=== PATIENT | female | born 1980 | race African-American/Black ===

== ENCOUNTER 2018-03-13 09:26 | Emergency (ER) | payer BC, SELFPAY ==
[2018-03-13] MEDS ORDERED: LIDOCAINE 1% 20 ML MDV ONE (09:49)
--- NOTE | 2018-03-13 10:10 | ER ---
Nurse's Notes [facility] Name: Isabel Cole Age: 38 yrs Sex: Female : 1980 Arrival Date: 03/13/2018 Time: 09:32 Bed 14 Private MD: Diagnosis: Cutaneous abscess of left upper limb Presentation: 03/13 09:42 Presenting complaint: Patient states: pain and swelling to L forearm x 2 days. Patient ss states, "my friend popped it, and after she popped it, it got more swollen.". Transition of care: patient was not received from another setting of care. Onset of symptoms was March 10, 2018. Initial Sepsis Screen: Does the patient meet any 2 criteria? No. Patient's initial sepsis screen is negative. Does the patient have a suspected source of infection? No. Patient's initial sepsis screen is negative. Care prior to arrival: None. 09:42 Method Of Arrival: Ambulatory ss 09:42 Acuity: ESTELA 4 ss Triage Assessment: 10:06 Bite description: bite sustained to palmar aspect of left forearm by an unknown animal, la1 animal information: vaccination(s) is unknown. General: Appears in no apparent distress. Behavior is calm, cooperative. Historical: - Allergies: 09:49 No Known Allergies; ss - Home Meds: 09:49 None [Active]; ss - PMHx: 09:49 None; ss - PSHx: 09:49 facial reconstruction; ss - Immunization history:: Adult Immunizations up to date. - Social history:: Smoking status: Patient/guardian denies using tobacco. - Family history:: not pertinent. - Hospitalizations: : No recent hospitalization is reported. Screenin:53 Abuse screen: Denies threats or abuse. Nutritional screening:. Tuberculosis screening: la1 No symptoms or risk factors identified. Fall Risk None identified. Assessment: 09:52 General: Appears in no apparent distress. Behavior is calm, cooperative. Pain: la1 Complains of pain in palmar aspect of left forearm. Neuro: Level of Consciousness is awake, alert, obeys commands, Oriented to person, place, time, situation. Cardiovascular: Capillary refill < 3 seconds Patient's skin is warm and dry. Derm: Skin is intact, is healthy with good turgor, Skin is pink, warm \\T\\ dry. Abscess located on palmar aspect of left forearm. Vital Signs: 09:49 BP 108 / 64; Pulse 87; Resp 16; Temp 98.5(O); Pulse Ox 98% on R/A; Weight 84.82 kg; ss Height 5 ft. 4 in. (162.56 cm); Pain 10/10; 09:49 Body Mass Index 32.10 (84.82 kg, 162.56 cm) ED Course: 09:32 Patient arrived in ED. sb2 09:35 Chaitanya Lim MD is Attending Physician. rn 09:42 Sheryl Abraham, SALVADOR is Primary Nurse. ph 09:46 Triage completed. ss 09:49 Arm band placed on right wrist. ss 09:53 Call light in reach. Side rails up X 1. la1 09:53 Assist provider with I \\T\\ D: of an abscess on left left arm Performed by Chaitanya Lim MD. la1 10:10 Priyank Rai MD is Referral Physician. rn 10:36 Patient did not have IV access during this emergency room visit. la1 Administered Medications: 09:52 Drug: Lidocaine (1 %) 1 vials Volume: 20 ml; Route: Infiltration; la1 Outcome: 10:10 Discharge ordered by . rn 10:36 Discharged to home ambulatory. la1 10:36 Condition: stable 10:36 Discharge instructions given to patient, Instructed on discharge instructions, follow up and referral plans. Demonstrated understanding of instructions, follow-up care, medications, Prescriptions given X 1. 10:36 Patient left the ED. la1 Addendum: 03/16/2018 15:23 Addendum: Culture Results: Positive wound culture. Bacteria is resistant to, has a a5 intermediate sensitivity, or is not tested against prescribed antibiotics. 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 Prescription called-in to pharmacy of choice. to [facility] pharmacy in [place], [place]. Signatures: Chaitanya Lim MD MD rn Calderon, Audri, RN RN aa5 Lay Tran RN RN Aaron Wang RN RN la1 Sheryl Abraham RN RN Cara Vargas sb2
--- NOTE | 2018-03-13 10:11 | EDPHYS ---
Physician Documentation [facility] Name: Isabel Cole Age: 38 yrs Sex: Female : 1980 Arrival Date: 03/13/2018 Time: 09:32 Bed 14 Private MD: ED Physician Chaitanya Lim HPI: 03/13 09:49 This 38 yrs old Black Female presents to ER via Ambulatory with complaints of Insect rn Bite. 09:49 the patient presents with a swollen area of the left arm. Onset: The symptoms/episode rn began/occurred 2 day(s) ago. Modifying factors: the symptoms are alleviated by nothing, the symptoms are aggravated by touching. Severity of symptoms: At their worst the symptoms were moderate, in the emergency department the symptoms have resolved. The patient has not experienced similar symptoms in the past. Historical: - Allergies: :49 No Known Allergies; ss - Home Meds: :49 None [Active]; ss - PMHx: :49 None; ss - PSHx: 09:49 facial reconstruction; ss - Immunization history:: Adult Immunizations up to date. - Social history:: Smoking status: Patient/guardian denies using tobacco. - Family history:: not pertinent. - Hospitalizations: : No recent hospitalization is reported. ROS: 09:49 Constitutional: Negative for fever, chills, and weight loss, MS/Extremity: Negative for rn injury and deformity, Skin: + swelling/abscess left forearm Exam: 09:49 Constitutional: This is a well developed, well nourished patient who is awake, alert, rn and in no acute distress. MS/ Extremity: Pulses equal, no cyanosis. + 3cm area of left mid forearm with mild warmth and fluctuance, central head to it, no streaking. Vital Signs: 09:49 BP 108 / 64; Pulse 87; Resp 16; Temp 98.5(O); Pulse Ox 98% on R/A; Weight 84.82 kg; ss Height 5 ft. 4 in. (162.56 cm); Pain 1010; 09:49 Body Mass Index 32.10 (84.82 kg, 162.56 cm) Procedures: 10:09 I \T\ D: Incision and drainage was performed for an abscess of the left left arm Prepped rn with Betadine, Anesthetized with 3 ml's 1% Lidocaine. Incised with #11 blade. Drained small amount purulent fluid. Packed with iodoform gauze, Dressing: sterile 4x4 gauze, the patient tolerated the procedure well. MDM: 09:35 Patient medically screened. rn 10:09 Differential diagnosis: abscess, cellulitis. Data reviewed: vital signs, nurses notes, rn and as a result, I will discharge patient. Counseling: I had a detailed discussion with the patient and/or guardian regarding: the historical points, exam findings, and any diagnostic results supporting the discharge/admit diagnosis, the need for outpatient follow up, to return to the emergency department if symptoms worsen or persist or if there are any questions or concerns that arise at home. Response to treatment: the patient's symptoms have mildly improved after treatment, and as a result, I will discharge patient. Special discussion: I discussed with the patient/guardian in detail that at this point there is no indication for admission to the hospital. It is understood, however, that if the symptoms persist or worsen the patient needs to return immediately for re-evaluation. 03/13 09:54 Order name: Wound Culture la1 03/13 09:49 Order name: Incision \T\ Drainage Setup; Complete Time: 09:52 rn Administered Medications: 09:52 Drug: Lidocaine (1 %) 1 vials Volume: 20 ml; Route: Infiltration; la Disposition: 03/13/18 10:10 Discharged to Home. Impression: Cutaneous abscess of left upper limb. - Condition is Stable. - Discharge Instructions: Abscess, Incision and Drainage. - Prescriptions for Clindamycin HCl 300 mg Oral Capsule - take 1 capsule by ORAL route every 6 hours for 10 days; 40 capsule. - Medication Reconciliation Form, Thank You Letter, Antibiotic Education, Prescription Opioid Use form. - Follow up: Priyank Rai MD; When: 2 - 3 days; Reason: Wound Recheck, Recheck today's complaints, Re-evaluation by your physician. - Problem is new. - Symptoms have improved. Signatures: Dispatcher [employer] EDMS Chaitanya Lim MD MD rn Smirch, Shelby, RN RN ss Attema, Lee, RN RN la1 Corrections: (The following items were deleted from the chart) 10:36 10:10 03/13/2018 10:10 Discharged to Home. Impression: Cutaneous abscess of left upper la1 limb. Condition is Stable. Forms are Medication Reconciliation Form, Thank You Letter, Antibiotic Education, Prescription Opioid Use. Follow up: Priyank Rai; When: 2 - 3 days; Reason: Wound Recheck, Recheck today's complaints, Re-evaluation by your physician. Problem is new. Symptoms have improved. rn
== END 2018-03-13 10:36 | disposition home or self-care (01) ==
LOC: ER 09:26
PROC: 0J9F0ZZ Drainage of Left Upper Arm Subcutaneous Tissue and Fascia, Open Approach (ICD-10-PCS; principal; 2018-03-13)
DX: L02.416 Cutaneous abscess of left lower limb (principal)
CPT/HCPCS: 87070; 87077; 87186; 87205; 99283

== ENCOUNTER 2018-03-19 13:09 | Emergency (ER) | payer BC ==
--- NOTE | 2018-03-19 14:07 | ER ---
Nurse's Notes [facility] Name: Isabel Cole Age: 38 yrs Sex: Female : 1980 Arrival Date: 03/19/2018 Time: 13:12 Bed 24 Private MD: Diagnosis: Cutaneous abscess of right upper limb Presentation: 03/19 13:26 Presenting complaint: Patient states: I had an I \T\ D here on Wednesday and they had to la1 change my abx 2 days ago, my wound is still having drainage and I want to have it looked at. Transition of care: patient was not received from another setting of care. Onset of symptoms was March 19, 2018. Initial Sepsis Screen: Does the patient meet any 2 criteria? No. Patient's initial sepsis screen is negative. Does the patient have a suspected source of infection? No. Patient's initial sepsis screen is negative. Care prior to arrival: None. 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 - Social history:: Smoking status: unknown. - Family history:: not pertinent. Screenin:40 Abuse screen: Denies threats or abuse. Nutritional screening: No deficits noted. tl3 Tuberculosis screening: No symptoms or risk factors identified. Fall Risk None identified. Assessment: 13:40 General: Appears in no apparent distress. comfortable, well groomed, well developed, tl3 well nourished, Behavior is calm, cooperative, appropriate for age. Pain: Complains of pain in left bicep. Neuro: Level of Consciousness is awake, alert, obeys commands, Oriented to person, place, time, situation, Appropriate for age. Cardiovascular: No deficits noted. Respiratory: No deficits noted. Airway is patent Trachea midline Respiratory effort is even, unlabored, Respiratory pattern is regular, symmetrical. GI: No signs and/or symptoms were reported involving the gastrointestinal system. : No signs and/or symptoms were reported regarding the genitourinary system. EENT: No signs and/or symptoms were reported regarding the EENT system. Derm: No signs and/or symptoms reported regarding the dermatologic system. Derm: Wound noted Wound is opened abscess to left upper arm, draining. I\T\D done on Wednesday of last week. Musculoskeletal: No signs and/or symptoms reported regarding the musculoskeletal system. 14:30 Reassessment: No changes from previously documented assessment. Patient and/or family tl3 updated on plan of care and expected duration. Pain level reassessed. Patient is alert, oriented x 3, equal unlabored respirations, skin warm/dry/pink. wound dressed with bactroban and bandaid. Vital Signs: 13:27 BP 107 / 75; Pulse 58; Resp 19; Pulse Ox 100% on R/A; la1 ED Course: 13:12 Patient arrived in ED. rg4 13:26 Triage completed. la1 13:27 Arm band placed on right wrist. la1 13:33 Willian Benitez MD is Attending Physician. [facility] 13:40 Magdalena Conner, RN is Primary Nurse. tl3 13:40 No apparent distress. Awaiting ED provider evaluation. tl3 13:40 Patient has correct armband on for positive identification. Bed in low position. Call tl3 light in reach. Side rails up X 1. Adult w/ patient. 13:40 No provider procedures requiring assistance completed. Patient did not have IV access tl3 during this emergency room visit. 14:05 Lakhwinder Lewis MD is Referral Physician. [facility] Administered Medications: 14:29 Drug: Doxycycline 200 mg Route: PO; tl3 14:29 Drug: Bactroban Ointment 2 % 1 application Route: Topical; Site: affected area; tl3 14:29 Drug: [place] 10 mg-325 mg 1 tabs Route: PO; tl3 14:30 Drug: Bactrim (160 mg-800 mg (DS) 1 tablet Route: PO; tl3 Outcome: 14:06 Discharge ordered by . [facility] 14:10 Discharged to home ambulatory. tl3 14:10 Condition: good 14:10 Discharge instructions given to patient, Instructed on discharge instructions, follow up and referral plans. medication usage, Demonstrated understanding of instructions, follow-up care, medications, wound care, Prescriptions given X 4. 15:16 Patient left the ED. tl3 Signatures: Willian Benitez MD MD cha Attema, Lee RN RN la1 Sophy Gibson rg4 Magdalena Conner, RN RN tl3
--- NOTE | 2018-03-19 14:07 | EDPHYS ---
Physician Documentation [facility] Name: Isabel Cole Age: 38 yrs Sex: Female : 1980 Arrival Date: 03/19/2018 Time: 13:12 Bed 24 Private MD: ED Physician Willian Benitez HPI: 03/19 14:01 This 38 yrs old Black Female presents to ER via Ambulatory with complaints of Wound adrien Check. 14:01 Patient presents to ED for recheck of: abscess. The affected area is on the right arm. adrien Previous treatment: Outpatient prescription(s): The patient was given prescription(s) for Bactrim, clindamycin. Progress: The patient reports decreased drainage, pain, redness. The patient has not experienced similar symptoms in the past. 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 - Social history:: Smoking status: unknown. - Family history:: not pertinent. ROS: 14:01 Constitutional: Negative for fever, chills, and weight loss, Eyes: Negative for injury, adrien pain, redness, and discharge, ENT: Negative for injury, pain, and discharge, Neck: Negative for injury, pain, and swelling, Cardiovascular: Negative for chest pain, palpitations, and edema, Respiratory: Negative for shortness of breath, cough, wheezing, and pleuritic chest pain, Abdomen/GI: Negative for abdominal pain, nausea, vomiting, diarrhea, and constipation, Back: Negative for injury and pain, : Negative for injury, bleeding, discharge, and swelling, Skin: Negative for injury, rash, and discoloration, Neuro: Negative for headache, weakness, numbness, tingling, and seizure, Psych: Negative for depression, anxiety, suicide ideation, homicidal ideation, and hallucinations, Allergy/Immunology: Negative for hives, rash, and allergies, Endocrine: Negative for neck swelling, polydipsia, polyuria, polyphagia, and marked weight changes, Hematologic/Lymphatic: Negative for swollen nodes, abnormal bleeding, and unusual bruising. 14:01 MS/extremity: Positive for pain, swelling, tenderness, warmth, of the left arm. Exam: 14:01 Constitutional: This is a well developed, well nourished patient who is awake, alert, adrien and in no acute distress. Head/Face: Normocephalic, atraumatic. Eyes: Pupils equal round and reactive to light, extra-ocular motions intact. Lids and lashes normal. Conjunctiva and sclera are non-icteric and not injected. Cornea within normal limits. Periorbital areas with no swelling, redness, or edema. ENT: Nares patent. No nasal discharge, no septal abnormalities noted. Tympanic membranes are normal and external auditory canals are clear. Oropharynx with no redness, swelling, or masses, exudates, or evidence of obstruction, uvula midline. Mucous membranes moist. Neck: Trachea midline, no thyromegaly or masses palpated, and no cervical lymphadenopathy. Supple, full range of motion without nuchal rigidity, or vertebral point tenderness. No Meningismus. Chest/axilla: Normal chest wall appearance and motion. Nontender with no deformity. No lesions are appreciated. Cardiovascular: Regular rate and rhythm with a normal S1 and S2. No gallops, murmurs, or rubs. Normal PMI, no JVD. No pulse deficits. Respiratory: Lungs have equal breath sounds bilaterally, clear to auscultation and percussion. No rales, rhonchi or wheezes noted. No increased work of breathing, no retractions or nasal flaring. Abdomen/GI: Soft, non-tender, with normal bowel sounds. No distension or tympany. No guarding or rebound. No evidence of tenderness throughout. Back: No spinal tenderness. No costovertebral tenderness. Full range of motion. Female : Normal external genitalia. Skin: Warm, dry with normal turgor. Normal color with no rashes, no lesions, and no evidence of cellulitis. Neuro: Awake and alert, GCS 15, oriented to person, place, time, and situation. Cranial nerves II-XII grossly intact. Motor strength 5/5 in all extremities. Sensory grossly intact. Cerebellar exam normal. Normal gait. Psych: Awake, alert, with orientation to person, place and time. Behavior, mood, and affect are within normal limits. 14:01 Musculoskeletal/extremity: ROM: intact in all extremities, full active range of motion, Circulation is intact in all extremities. Sensation intact. Compartment Syndrome exam of affected extremity: is normal. DVT Exam: no pain, negative Homans' sign noted on exam, no appreciated bluish discoloration, pain, that is mild, swelling, tenderness, erythema, increased warmth, that is moderate. Vital Signs: 13:27 BP 107 / 75; Pulse 58; Resp 19; Pulse Ox 100% on R/A; la1 MDM: 13:33 Patient medically screened. [facility] 14:01 Data reviewed: vital signs, nurses notes, lab test result(s). [facility] 03/19 14:01 Order name: Urine Dipstick-Ancillary (obtain specimen); Complete Time: 14:30 [facility] Administered Medications: 14:29 Drug: Doxycycline 200 mg Route: PO; tl3 14:29 Drug: Bactroban Ointment 2 % 1 application Route: Topical; Site: affected area; tl3 14:29 Drug: [place] 10 mg-325 mg 1 tabs Route: PO; tl3 14:30 Drug: Bactrim (160 mg-800 mg (DS) 1 tablet Route: PO; tl3 Disposition: 03/19/18 14:06 Discharged to Home. Impression: Cutaneous abscess of right upper limb. - Condition is Stable. - Discharge Instructions: Abscess, Incision and Drainage, Abscess, [id number]. - Prescriptions for Doxycycline Hyclate 100 mg Oral Tablet - take 1 tablet by ORAL route every 12 hours; 20 tablet. Bactrim DS 800- 160 mg Oral Tablet - take 1 tablet by ORAL route every 12 hours for 7 days; 14 tablet. Tylenol- Codeine #3 300-30 mg Oral Tablet - take 2 tablets by ORAL route every 6 hours As needed; 20 tablet. Bactroban 2 % Topical Ointment - Apply to affected area 1 application by TOPICAL route every 12 hours; 30 gram. - Medication Reconciliation Form, Thank You Letter, Antibiotic Education, Prescription Opioid Use form. - Follow up: Private Physician; When: 2 - 3 days; Reason: Recheck today's complaints, Continuance of care, Re-evaluation by your physician. Follow up: Lakhwinder Lewis MD; When: 2 - 3 days; Reason: Recheck today's complaints, Re-evaluation by your physician. - Problem is new. - Symptoms have improved. Signatures: Willian Benitez MD MD cha Attema, Lee RN RN la1 Magdalena Conner RN RN tl3 Corrections: (The following items were deleted from the chart) 14:30 14:01 Urine Test ordered. adrien tl3 15:16 14:06 03/19/2018 14:06 Discharged to Home. Impression: Cutaneous abscess of right upper tl3 limb. Condition is Stable. Forms are Medication Reconciliation Form, Thank You Letter, Antibiotic Education, Prescription Opioid Use. Follow up: Private Physician; When: 2 - 3 days; Reason: Recheck today's complaints, Continuance of care, Re-evaluation by your physician. Follow up: Dr. Lakhwinder Lewis; When: 2 - 3 days; Reason: Recheck today's complaints, Re-evaluation by your physician. Problem is new. Symptoms have improved. adrien
[2018-03-19] MEDS ORDERED: HYDROCODONE/APAP 10/325 TAB ONE (14:11)
[2018-03-19] MEDS ORDERED: SMZ./TMP. 800/160 MG TABLET ONE (14:11)
[2018-03-19] MEDS ORDERED: DOXYCYCLINE 100 MG CAP PO ONE (14:12)
[2018-03-19] MEDS ORDERED: MUPIROCIN 2% OINT 22GM TUBE TOP ONE (14:12)
== END 2018-03-19 15:16 | disposition home or self-care (01) ==
LOC: ER 13:09
DX: L02.413 Cutaneous abscess of right upper limb (principal)
CPT/HCPCS: 99283

== ENCOUNTER → 2018-12-07 | Day surgery (SDC) | payer BC ==
[2018-11-30 14:46] LABS: Absolute Monocytes 0.5 K/uL (0.1-1.3); Absolute Neutrophil 4.5 K/uL (1.8-8.0); Basophils % 0.9 % (0-1.3); Eosinophils % 1.8 % (0-4.4); Hematocrit 39.8 % (36.0-45.0); Lymphocytes % 27.7 % (15.3-44.8); MPV 9.6 fL (7.6-11.3); Monocytes % 6.9 % (3.3-12.3); RBC Red Blood Cell Count 4.91 M/uL (3.86-4.86)
[2018-11-30 15:25] LABS: Urine Appearance CLEAR; Urine Bilirubin NEGATIVE (NEG); Urine Blood NEGATIVE (NEG); Urine Color YELLOW; Urine Glucose NEGATIVE (NEG); Urine Protein NEGATIVE (NEG); Urine pH 6.5 (5.0-7.0)
[2018-11-30 15:26] LABS: Urine Microscopic Reflex ORDER UMIC
[2018-11-30 16:05] LABS: Urine Bacteria <20 /HPF (<20); Urine RBC <5 /HPF (NONE SEEN)
[2018-11-30 16:06] LABS: Urine Culture Reflex Order NOT NEEDED
[~2018-12-07] MED LIST: DEXAMETHASONE 10 MG/ML VIAL ONE; FENTANYL CITR 250 MCG/5 ML ONE; GLYCOPYRROLATE 0.2 MG/ML SYR ONE; HYDROCODONE/APAP 5/325 MG TAB ONE; KETOROLAC 30 MG/ML INJ ONE; LIDOCAINE 1% MPF 2 ML AMPULE ONE; LIDOCAINE 2% MPF 5 ML VIAL ONE; MIDAZOLAM HCL 2 MG/2 ML INJ ONE; NA CHLORIDE 0.9% 1,000 ML ONE; NEOSTIGMINE 1 MG/ML -10 ML VIAL ONE; ONDANSETRON 4 MG/2 ML VIAL ONE; PROPOFOL 200 MG/20 ML VIAL IV ONE; ROCURONIUM 50 MG/5 ML VIAL IV ONE; Ringers Lactate 1,000 ML IV ONE
[2018-12-07 06:29] LABS: Specific Gravity 1.015 (1.005-1.030)
[2018-12-07] MEDS: Ringers Lactate 1,000 ML IV ONE ×2 (08:35→09:02)
[2018-12-07] MEDS: FENTANYL CITR 100 MCG/2 ML ONE ×3 (09:53→10:08)
--- NOTE | 2018-12-08 15:42 | OP ---
Date of Procedure: 12/07/2018 Surgeon: Katheryn Lyon MD Preoperative Diagnoses: Dysmenorrhea, dyspareunia, and possible blocked tubes. 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 Bilateral hydrosalpinges, left greater than the right and bilateral tubo-ovarian adhesions dense, left sigmoid adhesions to the left lower quadrant and the left tube, right ovarian cyst that was a corpus luteal cyst. Normal appendix. No endometriosis. Procedures Performed: 1.Diagnostic hysteroscopy. 2.Diagnostic laparoscopy. 3.Lysis of sigmoid adhesions and bilateral tubo-ovarian adhesions. 4.Chromotubation. 5.Bilateral salpingectomy. 6.Right ovarian cystectomy. Anesthesia: General endotracheal. Specimens: Right ovarian cyst, bilateral tubes. Complications: No complications. Drains: No drains. Condition: Stable. Findings: As dictated in the postoperative diagnoses as well as posterior fundal fibroid about 4 to 5 cm that was intramural. The impression of this fibroid does extend into the sub-endometrium as visualized by the hysteroscope . Description Of Procedure: After informed consent was verified, the patient was taken back to the OR, placed in a supine fashion on the operating table. After general anesthesia was given, she was plac ed in a dorsal lithotomy position. Pelvic exam performed. Uterus was found to be 8 week size, mobil e. No adnexal masses were palpable. Abdomen, vulva, vagina, and perineum were prepped and draped in a sterile fashion. Sandra was placed to drain the bladder. Speculum was placed to expose the cervix. Anterior lip was grasped with 2 All is clamps. Direct hysteroscopy with a SlimLine hysteroscope, 30-degree lens normal saline conducted. Uterine cavity empty, both tubal ostia were visualized. Posterior wall has an impression of a fibr oid. No other abnormalities in the endometrium visualized. Scope was pulled out. Diagnostic VCare was introduced and fixed in place and the Sandra was attached to a drainage bag and clamped to the evangelist pe sheath. This area was then draped. A 1 cm infraumbilical incision was made fashion. The infraumbilical fascia was exposed, i ncised, tagged on both sides with 0 Vicryl sutures. Peritoneum entered bluntly, S retractor was plac ed. Site of entry checked and unremarkable. Upper abdominal surface surveyed and the perihepatic ad hesions dense on the right lobe of the liver were seen. The left lobe of the liver was unremarkable and normal. Then on the pelvic exam, after the patient was placed in Trendelenburg, a 5 mm suprapubi c and left lower quadrant ports were placed under direct vision. A survey of the pelvic cavity was p erformed and normal appendix was visualized. The sigmoid was stuck to the left lateral wall, anterio r and medial to the natural attachment of the sigmoid to the lateral wall and also to the distal part of the left tube. The left tube was dilated significantly, larger than the size of small bowel. No occlusion of left tube, appeared to be more distal and the tube was tortuous and had and ends of the tubes were adhered to the ovaries. There were multiple adhesions from the ovaries to the tubes as well. The ovarian adhesions to the pelvic sidewall and the posterior broad ligament were a lso noted on both sides, right greater than the left. No endometriosis was visualized in the anterio r cul-de-sac, anterior peritoneum, posterior broad ligament, or posterior cul-de-sac. There was an a dhesion that appeared to be dense from the sigmoid to the right uterosacral; however, this was just p shrerie adhesions without any endometriosis. Plan was to remove all the adhesions first to release the organs from there abnormal attached area. Once normal anatomy was restored, then plan was to do chromotubation and then remove the tubes if the y were dilated. The sigmoid adhesions were taken down with push spread technique making windows and taken down from t he left lower quadrant. Then, once this was released, the base of the tube and then infundibulopelvi c ligament were well visualized. The tubal adhesions to the left lateral wall were taken down ____ sharply. The ovarian adhesions to the posterior broad ligament were also taken down with the he lp of the scissors. Then, the right ovary was retracted and the adhesions were taken down from the r ight lateral wall and right posterior broad ligament. The tubal adhesions from the ovary were separa carine as well and in order for me to totally remove the tube. The tube was tortuous and dilated. On C hromotubation, the tubes were occluded with methylene blue. Bilateral salpingectomy was performed with the help of EnSeal device. The dissection on the right wa s started from the lateral aspect after the broad ligament was opened up and anterior peritoneum take n down anteriorly, medially and posteriorly laterally then the tube was then picked up to the distal part of the tube to the proximal. The EnSeal was used to take it down and cauterize. The tube was d etached and placed in the anterior cul-de-sac. Similar dissection was performed on the opposite side taking down the attachment of the tube from the and then taking it all the way down to th e fimbriated end and this was taken down. The ovarian blood supply was intact and untouched. There was bleeding from the posterior pole of the ovary that was attached with the adhesions and these were taken down while performing task. The functional right ovarian cyst was touched and it started to b leed, despite multiple attempts of coagulation with cautery or pressure, just leaving alone for a whi le, still did not stop. So at this point, the decision was made to remove the cyst and cauterized th e base of the ovary and wrapped with Interceed. This was done after the corpus luteal cyst was removed and bipolar medium tip was used to cauterize t he base and then Interceed was wrapped around the ovary and the other half of the Interceed was wrapp ed around the left ovary as well. The tubes were placed in EndoCatch bag and removed through the umbilical port, after all thorough irr igation and suction were performed. The patient tolerated the procedure well. All the po rts were removed under direct vision and then Toradol was given. The gas was desufflated. Umbilical port was removed. The fascia was closed with the help of 0 Vicryl in a [id number] fashion and simple 0 Vicryl stitch to bring the subcutaneous tissues together. 4-0 Monocryl interrupted closure for umbilical and suprapubic incision and 3-0 Vicryl running closure for the left lower quadrant inci esperanza. Because this had accidental cautery effect on the skin and so had to be reexcised, extended ju st on the skin and closed in a continuous subcuticular fashion. Steri-Strips were placed. Sandra and VCare were removed. Instrument, needle, and sponge counts were done and were correct at the end of the case. The patient tolerated the procedure well. She will follow up with me in 1 week. She is b eing given doxycycline 100 b.i.d. for 14 days. CHINO Voice ID: [id number] Report ID: [id number]
== END | disposition home or self-care (01) ==
LOC: OR 06:04
PROVIDERS: ATTEND Obstetrics & Gynecology
PROC: 0UB04ZZ Excision of Right Ovary, Percutaneous Endoscopic Approach (ICD-10-PCS; 2018-12-07)
PROC: 3E0P8KZ Introduction of Other Diagnostic Substance into Female Reproductive, Via Natural or Artificial Opening Endoscopic (ICD-10-PCS; 2018-12-07)
PROC: 0UT74ZZ Resection of Bilateral Fallopian Tubes, Percutaneous Endoscopic Approach (ICD-10-PCS; principal; 2018-12-07 07:30)
DX: N70.11 Chronic salpingitis (principal); N83.11 Corpus luteum cyst of right ovary; N83.8 Other noninflammatory disorders of ovary, fallopian tube and broad ligament; N92.0 Excessive and frequent menstruation with regular cycle; N94.6 Dysmenorrhea, unspecified; N94.12 Deep dyspareunia; K66.0 Peritoneal adhesions (postprocedural) (postinfection); D25.1 Intramural leiomyoma of uterus
CPT/HCPCS: 36415; 81003; 81015; 81025; 85025; 86850; 86900; 86901; 88302; 88305; J1100; J2001; J2250; J2405; J2704; J2710; J3010; J7030